=== PATIENT | female | born 1980 | race African-American/Black ===

== ENCOUNTER 2016-09-07 06:45 | Emergency (ER) | payer BC, MEDICAID ==
[~2016-09-07] VITALS: Ht 170.2 cm; Wt 61.0 kg
[2016-09-07] MEDS ORDERED: SODIUM CHLORIDE 0.9% 1,000 ML IV ONE (07:08)
[2016-09-07] MEDS ORDERED: ALBUTEROL (0.083%) 2.5MG/3ML NEB HHN STA (07:08)
[2016-09-07] MEDS ORDERED: MAGNESIUM 2 G PREMIX 50 ML IV STA (07:08)
[2016-09-07] MEDS ORDERED: IPRATROPIUM BROMIDE (0.02%) 0.5MG/2.5ML NEB HHN STA (07:08)
[2016-09-07 09:00] VITALS: BP 116/73
== END 2016-09-07 09:56 | disposition home or self-care (01) ==
LOC: ER 07:14
DX: J45.901 Unspecified asthma with (acute) exacerbation (principal); I10 Essential (primary) hypertension; F12.10 Cannabis abuse, uncomplicated; R56.9 Unspecified convulsions; Z88.8 Allergy status to other drugs, medicaments and biological substances
CPT/HCPCS: 81025; 94644; 96365; 99285; J3475; J7030; J7611

== ENCOUNTER 2019-03-11 17:25 | Emergency (ER) | payer SELFPAY | END 2019-03-11 19:19 | disposition left against medical advice (07) | LOC: ER 17:25 | DX: R42 Dizziness and giddiness (principal); R07.9 Chest pain, unspecified; J45.909 Unspecified asthma, uncomplicated; Z53.21 Procedure and treatment not carried out due to patient leaving prior to being seen by health care provider ==